=== PATIENT | female | born 1955 | race Caucasian/White ===

== ENCOUNTER → 2017-01-05 | Outpatient (CLI) | payer OTHER ==
--- NOTE | 2017-01-05 09:47 | RAD ---
DATE: 01/05/2017 EXAM: MAMMO MORE SCREENING BILATERAL Bilateral digital screening mammography to include digital breast tomosynthesis (3D mammography) HISTORY: Screening study. COMPARISON: 01/05/2016 This study was interpreted with the benefit of Computerized Aided Detection (CAD). The breast parenchyma is heterogeneously dense, which could reduce sensitivity of mammography. Breast parenchyma level C. FINDINGS: Digital MLO and CC mammograms of both breasts were obtained. Additionally digital breast tomosynthesis (3D mammography) images of both breasts in the MLO and CC projections were performed. Comparison study is dated 01/05/2016. The breast parenchyma is heterogeneously dense which can obscure a lesion on mammography (breast density code C). No spiculated mass is seen. No malignant appearing calcification or area of architectural distortion is noted. Benign-appearing calcifications are seen within both breasts. Digital breast tomosynthesis images demonstrate no spiculated mass or malignant appearing calcification. Since the previous examination there has been no significant interval change. IMPRESSION: BI-RADS Category 1, negative. There is no mammographic evidence of malignancy. Routine yearly screening mammography is recommended for follow-up. BI-RADS CATEGORY: 1 NEGATIVE RECOMMENDED FOLLOW-UP: 12M 12 MONTH FOLLOW-UP PQRS compliance statement: Patient information was entered into a reminder system with a target due date 01/05/2018 for the next mammogram. Mammography is a sensitive method for finding small breast cancers, but it does not detect them all and is not a substitute for careful clinical examination. A negative mammogram does not negate a clinically suspicious finding and should not result in delay in biopsying a clinically suspicious abnormality. "Our facility is accredited by the [employer] Mammography [employer]."
== END | disposition home or self-care (01) ==
LOC: MAMMO 08:06
PROVIDERS: ATTEND Family Medicine
DX: Z12.31 Encounter for screening mammogram for malignant neoplasm of breast (principal)
CPT/HCPCS: 77063; G0202; 77067

== ENCOUNTER 2017-02-02 19:31 | Emergency (ER) | payer OTHER ==
[~2017-02-02] VITALS: Ht 165.1 cm; Wt 54.5 kg
--- NOTE | 2017-02-02 19:51 | PHYS DOC ---
Adult General Chief Complaint Chief Complaint: PAIN ON URINATION HPI HPI Patient is a 61 year old F who presents with dysuria for the past couple weeks. Patient states the pain is gotten worse with urination. Patient that she could shake it however since the pain got worse she said the come in to be evaluated for UTI. Patient has history of UTIs states this feels like her previous UTIs. Patient denies any fevers. Patient denies any nausea/vomiting/diarrhea. Patient denies any chest pain or shortness of breath. Patient has no other complaints. Review of Systems Review of Systems GEN: Denies fevers, chills, sweats HEENT: Denies blurred vision, sore throat CV: Denies chest pain RESP: Denies shortness of air, cough GI: Denies n/v/d : Dysuria NEURO: Denies confusion, dizziness MSK: Denies weakness, joint pain/swelling Allergies Allergies Allergies Coded Allergies Type Severity Reaction Last Updated Verified No Known Drug Allergies 11/05/14 No Physical Exam Physical Exam GEN.: No apparent distress. Alert and oriented. HEENT: Head is normocephalic, atraumatic NECK: Supple. LUNGS: CTAB. HEART: RRR, S1, S2 present. Peripheral pulses intact ABDOMEN: Soft, nontender. Positive bowel sounds. EXTREMITIES: Without any cyanosis. NEUROLOGIC: Normal speech, normal tone PSYCHIATRIC: Normal affect, normal mood. SKIN: No ulcerations Current Patient Data Vital Signs Laboratory Tests Test 02/02/17 19:40 02/02/17 20:01 Urine Collection Type Unknown Urine Color Yellow Urine Clarity Clear Urine pH 6.0 Urine Specific [place] 1.010 Urine Protein Neg Urine Glucose (UA) Neg mg/dL Urine Ketones (Stick) Neg mg/dL Urine Blood Neg Urine Nitrite Neg Urine Bilirubin Neg Urine Urobilinogen Dipstick 0.2 mg/dL Urine Leukocyte Esterase Neg Urine RBC 0 /HPF Urine WBC 0 /HPF Urine Squamous Epithelial Cells Occ /LPF Urine Bacteria 0 /HPF White Blood Count 5.6 x10^3/uL Red Blood Count 4.39 x10^6/uL Hemoglobin 13.5 g/dL Hematocrit 38.5 % Mean Corpuscular Volume 88 fL Mean Corpuscular Hemoglobin 31 pg Mean Corpuscular Hemoglobin Concent 35 g/dL Red Cell Distribution Width 13.2 % Platelet Count 208 x10^3/uL Neutrophils (%) (Auto) 56 % Lymphocytes (%) (Auto) 31 % Monocytes (%) (Auto) 10 % Eosinophils (%) (Auto) 3 % Basophils (%) (Auto) 1 % Neutrophils # (Auto) 3.1 x10^3uL Lymphocytes # (Auto) 1.7 x10^3/uL Monocytes # (Auto) 0.5 x10^3/uL Eosinophils # (Auto) 0.2 x10^3/uL Basophils # (Auto) 0.0 x10^3/uL Sodium Level 141 mmol/L Potassium Level 3.3 mmol/L Chloride Level 103 mmol/L Carbon Dioxide Level 28 mmol/L Anion Gap 10 Blood Urea Nitrogen 12 mg/dL Creatinine 0.7 mg/dL Estimated GFR (Cockcroft-Gault) 85.1 BUN/Creatinine Ratio 17 Glucose Level 93 mg/dL Calcium Level 9.0 mg/dL Total Bilirubin 0.4 mg/dL Aspartate Amino Transf (AST/SGOT) 16 U/L Alanine Aminotransferase (ALT/SGPT) 22 U/L Alkaline Phosphatase 65 U/L Total Protein 7.8 g/dL Albumin 4.2 g/dL Albumin/Globulin Ratio 1.2 Lipase 238 U/L Current Medications Medications (Trade) Dose Ordered Sig/Alon Route PRN Reason Start Time Stop Time Status Last Admin Dose Admin Iohexol (Omnipaque 300 Mg/ml) 75 ml 1X ONCE IV 02/02/17 20:00 02/02/17 20:01 DC 02/02/17 20:12 EKG EKG [] Radiology/Procedures Radiology/Procedures CT scan abdomen and pelvis NAD[] Course & Med Decision Making Course & Med Decision Making Pertinent Labs and Imaging studies reviewed. (See chart for details) ED course: Patient was seen and examined in the emergency room and UA was ordered 1953: Bedside urine dip was performed which showed no signs of a UTI therefore discussed getting blood work and a CT scan abdomen pelvis with the patient who is in agreement. 2052: Updated patient on lab results and CT results. Since the patient still having burning with urination we'll go ahead and treat for a suspected UTI and recommended short-term follow-up with her PCP. MDM: After reviewing the chart, CC/HPI/PMH, physical exam, [lab results], [ radiological results], I do not believe the patient has a intra-abdominal emergency warranting further workup and/or admission at this time. Even though the UA was unremarkable patient's symptoms of a UTI warrant prophylactic treatment and short-term follow-up with her PCP. Patient is stable for discharge. Additional verbal discharge instructions were provided to the patient and that if symptoms get worse or any new symptoms arise that are worrisome to the patient she is to return to the emergency room immediately [] Dragon Disclaimer Dragon Disclaimer This chart was dictated in whole or in part using Voice Recognition software in a busy, high-work load, and often noisy Emergency Department environment. It may contain unintended and wholly unrecognized errors or omissions. Departure Departure: Impression: Primary Impression: Dysuria Condition: IMPROVED Referrals: OSCAR KENNEY MD (PCP) Patient Instructions: Dysuria-Brief Additional Instructions: Please follow-up with your family physician in the next one to 2 days and return if symptoms increase Scripts Sulfamethoxazole/Trimethoprim (BACTRIM DS TABLET) 1 Each Tablet 1 TAB PO BID for 5 Days, #10 TAB Prov: BRIE JACOBS DO 02/02/17 BRIE JACOBS DO Feb 02, 2017 19:51
[2017-02-02] MEDS ORDERED: IOHEXOL 300 MG/ML 75 ML VIAL. IV ONE (20:00)
[2017-02-02 20:24] LABS: BASO % 1 % (0-3); EOS # 0.2 x10^3/uL (0.0-0.7); EOS % 3 % (0-3); HEMATOCRIT 38.5 % (36.0-47.0); HEMOGLOBIN 13.5 g/dL (12.0-15.5); LYMPH # 1.7 x10^3/uL (1.0-4.8); LYMPH % 31 % (24-48); MEAN CORPUSCULAR HEMOGLOBIN 31 pg (25-35); MEAN CORPUSCULAR HGB CONC 35 g/dL (31-37); MEAN CORPUSCULAR VOLUME 88 fL (79-100); MONO # 0.5 x10^3/uL (0.0-1.1); MONO % 10 % (0-9); NEUT # 3.1 x10^3uL (1.8-7.7); NEUT % 56 % (31-73); PLATELET COUNT 208 x10^3/uL (140-400); RED BLOOD COUNT 4.39 x10^6/uL (3.50-5.40); RED CELL DISTRIBUTION WIDTH 13.2 % (11.5-14.5); WHITE BLOOD COUNT 5.6 x10^3/uL (4.0-11.0)
[2017-02-02 20:33] LABS: ALBUMIN 4.2 g/dL (3.4-5.0); ALBUMIN/GLOBULIN RATIO 1.2 (1.0-1.7); CREATININE 0.7 mg/dL (0.6-1.0); GFR 85.1; POTASSIUM 3.3 mmol/L (3.5-5.1); TOTAL BILIRUBIN 0.4 mg/dL (0.2-1.0); TOTAL PROTEIN 7.8 g/dL (6.4-8.2)
--- NOTE | 2017-02-02 20:39 | RAD ---
PQRS Compliance Statement: One or more of the following individualized dose reduction techniques were utilized for this examination: 1. Automated exposure control 2. Adjustment of the mA and/or kV according to patient size 3. Use of iterative reconstruction technique CT abdomen/pelvis with contrast February 02, 2017 INDICATION: Abdominal pain with painful urination. History of UTI. COMPARISON: CT abdomen/pelvis November 05, 2014 TECHNIQUE: Multiple axial CT images of the abdomen and pelvis were obtained after the intravenous administration of 75 cc Omnipaque 300. Coronal and sagittal reformats are provided. FINDINGS: Lung bases are clear. Heart size is within normal limits. There is a 3 mm hypodensity in the right hepatic lobe (series 2, image 23) statistically favor to represent a simple cyst. No suspicious hepatic masses are identified. Spleen, bilateral adrenal glands, and pancreas are normal in appearance. Gallbladder is present without adjacent inflammatory changes. Abdominal aorta is normal in course and caliber. No pathologically enlarged lymph nodes are identified in the abdomen or pelvis. There is no free fluid or free intraperitoneal air. Kidneys enhance symmetrically. No suspicious renal masses. No hydronephrosis. No calculi are identified in the ureters or urinary bladder. Oral contrast was not administered. There are no dilated loops of small or large bowel. Normal-appearing appendix is visualized. No pericolonic inflammatory changes are identified. No suspicious osseous lesions are identified. No significant adnexal lesions are identified. IMPRESSION: No acute abnormality is identified in the abdomen or pelvis. Electronically signed by: Jannet Nicholson MD (02/02/2017 8:35 PM) [facility]
[2017-02-02 20:41] LABS: BACTERIA,URINE 0 /HPF (0-FEW); BILIRUBIN,URINE NEG (NEG); CLARITY,URINE CLEAR; COLOR,URINE YELLOW; GLUCOSE,URINE NEG (NEG); NITRITE,URINE NEG (NEG); RBC,URINE 0 /HPF (0-2); SQUAMOUS EPITHELIAL CELL,UR OCC /LPF; UROBILINOGEN,URINE 0.2 mg/dL (0.2 mg/dL); WBC,URINE 0 /HPF (0-4)
[2017-02-02] MEDS ORDERED: SULF1TAB24 PO (20:57)
[2017-02-02 21:18] VITALS: BP 115/75
== END 2017-02-02 21:09 | disposition home or self-care (01) ==
LOC: ER 19:31
DX: R30.0 Dysuria (principal)
CPT/HCPCS: 36415; 74177; 80053; 81001; 83690; 85025; 99285; Q9967

== ENCOUNTER 2018-09-21 16:39 | Emergency (ER) | payer OTHER ==
[~2018-09-21 16:39] MED LIST: SULF1TAB24 PO
[2018-09-21 16:52] VITALS: BP 148/75
--- NOTE | 2018-09-21 17:12 | PHYS DOC ---
Past History Past Medical History: No Pertinent History (MERCEDES MARTIN MD) Past Surgical History: Hysterectomy, Tonsillectomy (MERCEDES MARTIN MD) Alcohol Use: None Drug Use: None (MERCEDES MARTIN MD) Adult General Chief Complaint Chief Complaint: ABDOMINAL PAIN HPI HPI Patient is a 63 year old female presenting with abdominal pain. She states the pain began a few days ago and is locater infraumbilically bilaterally. She reports some radiation downward into her pelvis and legs. She also states that she has had some burning and urgency. She denies blood in her urine or stool, vomiting, diarrhea, constipation, fever, chills, or headache. Pt. is reporting occasional back pain. (MERCEDES MARTIN MD) Review of Systems Review of Systems Constitutional: Denies fever or chills [] Eyes: Denies change in visual acuity, redness, or eye pain [] HENT: Denies nasal congestion or sore throat [] Respiratory: Denies cough or shortness of breath [] Cardiovascular: No additional information not addressed in HPI [] GI: Denies abdominal pain, nausea, vomiting, bloody stools or diarrhea [] : Reports urgency and burning [] Musculoskeletal: Reports back pain [] Integument: Denies rash or skin lesions [] Neurologic: Denies headache, focal weakness or sensory changes [] Endocrine: Denies polyuria or polydipsia [] All other systems were reviewed and found to be within normal limits, except as documented in this note. (MERCEDES MARTIN MD) Allergies Allergies Allergies Coded Allergies Type Severity Reaction Last Updated Verified No Known Drug Allergies 11/05/14 No (MERCEDES MARTIN MD) Physical Exam Physical Exam Constitutional: Well developed, well nourished, no acute distress, non-toxic appearance. [] HENT: Normocephalic, atraumatic, bilateral external ears normal, oropharynx moist, no oral exudates, nose normal. [] Eyes: PERRLA, EOMI, conjunctiva normal, no discharge. [] Neck: Normal range of motion, no tenderness, supple, no stridor. [] Cardiovascular:Heart rate regular rhythm, no murmur [] Lungs & Thorax: Bilateral breath sounds clear to auscultation [] Abdomen: Tenderness to palpation in RLQ and LLQ [] Skin: Warm, dry, no erythema, no rash. [] Back: No tenderness, no CVA tenderness. [] Extremities: No tenderness, no cyanosis, no clubbing, ROM intact, no edema. [] Neurologic: Alert and oriented X 3, normal motor function, normal sensory function, no focal deficits noted. [] Psychologic: Affect normal, judgement normal, mood normal. [] (MERCEDES MARTIN MD) Current Patient Data Vital Signs Vital Signs Date Time Temp Pulse Resp B/P (MAP) Pulse Ox O2 Delivery O2 Flow Rate FiO2 09/21/18 16:52 97.7 80 18 100 Room Air (MERCEDES MARTIN MD) EKG EKG [] (MERCEDES MARTIN MD) Radiology/Procedures Radiology/Procedures [] (MERCEDES MARTIN MD) Impressions: PROCEDURE: CT ABD PELV W/ IV CONTRST ONLY CT scan of the abdomen and pelvis with contrast 09/21/2018 CLINICAL HISTORY: Lower abdominal pain. TECHNIQUE: After the intravenous administration 75 cc of Omnipaque 300 only, contiguous, 5 mm axial sections were obtained through the abdomen and pelvis. One or more of the following individualized dose reduction techniques were utilized for this study: 1. Automated exposure control. 2. Adjustment of the mA and/or kV according to patient size. 3. Use of iterative reconstruction technique. FINDINGS: Comparison study is dated 02/02/2017. Images through the lung bases are within normal limits. The liver, spleen, pancreas, adrenal glands and kidneys are within normal limits. The abdominal aorta tapers normally. Mild atherosclerotic calcification of the abdominal aorta and its branches is seen. The gallbladder is slightly contracted. No free fluid or free air is seen within the abdomen. Air and stool is seen throughout the colon. The appendix is well-visualized and is within normal limits. Images through the pelvis demonstrate the urinary bladder to be contracted. Surgical clips are seen within the right pelvis. The patient appears to be post hysterectomy. No adnexal mass is seen. No free fluid is noted. Minimal S-shaped curvature of the thoracolumbar spine is seen. Degenerative changes are seen involving the mid and lower lumbar spine. IMPRESSION: No acute abnormality is seen. Electronically signed by: Samson Patton MD (09/21/2018 7:50 PM) [facility] (LAUREL KIRKLAND Jr. DO) Course & Med Decision Making Course & Med Decision Making Pertinent Labs and Imaging studies reviewed. (See chart for details) 63-year-old female presenting with lower abdominal discomfort to have some kind of burning pain may be some urgency however urinalysis is essentially negative so workup has been initiated with labs and a CT scan care will be signed over to Dr. Kirkland pending results (MERCEDES MARTIN MD) Dragon Disclaimer Dragon Disclaimer This electronic medical record was generated, in whole or in part, using a voice recognition dictation system. (MERCEDES MARTIN MD) Departure Departure: Impression: Primary Impression: Lower abdominal pain Additional Impression: Dysuria Disposition: HOME, SELF-CARE Condition: STABLE Referrals: OSCAR KENNEY MD (PCP) Patient Instructions: Abdominal Pain, Dysuria Scripts Phenazopyridine Hcl (PYRIDIUM) 100 Mg Tablet 100 MG PO TID for dysuria, #9 TAB Prov: LAUREL KIRKLAND Jr. DO 09/21/18 Sulfamethoxazole/Trimethoprim (BACTRIM DS TABLET) 1 Each Tablet 1 TAB PO BID for dysuria, #6 TAB Prov: LAUREL KIRKLAND Jr. DO 09/21/18 Problem Qualifiers MERCEDES MARTIN MD September 21, 2018 17:12 LAUREL KIRKLAND Jr. DO September 21, 2018 20:15
[2018-09-21 17:39] LABS: CLARITY,URINE CLEAR
[2018-09-21 17:40] LABS: BACTERIA,URINE 0 /HPF (0-FEW); BILIRUBIN,URINE NEG (NEG); COLOR,URINE YELLOW; GLUCOSE,URINE NEG (NEG); NITRITE,URINE NEG (NEG); RBC,URINE 0 /HPF (0-2); SQUAMOUS EPITHELIAL CELL,UR OCC /LPF; UROBILINOGEN,URINE 0.2 mg/dL (0.2 mg/dL); WBC,URINE 0 /HPF (0-4)
[2018-09-21 18:41] LABS: BASO % 1 % (0-3); EOS # 0.1 x10^3/uL (0.0-0.7); EOS % 2 % (0-3); HEMATOCRIT 41.4 % (36.0-47.0); HEMOGLOBIN 14.1 g/dL (12.0-15.5); LYMPH # 1.4 x10^3/uL (1.0-4.8); LYMPH % 29 % (24-48); MEAN CORPUSCULAR HEMOGLOBIN 30 pg (25-35); MEAN CORPUSCULAR HGB CONC 34 g/dL (31-37); MEAN CORPUSCULAR VOLUME 89 fL (79-100); MONO # 0.5 x10^3/uL (0.0-1.1); MONO % 10 % (0-9); NEUT # 2.8 x10^3uL (1.8-7.7); NEUT % 57 % (31-73); PLATELET COUNT 221 x10^3/uL (140-400); RED BLOOD COUNT 4.63 x10^6/uL (3.50-5.40); RED CELL DISTRIBUTION WIDTH 12.9 % (11.5-14.5); WHITE BLOOD COUNT 4.9 x10^3/uL (4.0-11.0)
[2018-09-21 18:50] LABS: ALBUMIN 4.3 g/dL (3.4-5.0); ALBUMIN/GLOBULIN RATIO 1.2 (1.0-1.7); CALCIUM 9.1 mg/dL (8.5-10.1); CREATININE 0.7 mg/dL (0.6-1.0); GFR 84.5; POTASSIUM 3.8 mmol/L (3.5-5.1); TOTAL BILIRUBIN 0.3 mg/dL (0.2-1.0); TOTAL PROTEIN 7.8 g/dL (6.4-8.2)
[2018-09-21] MEDS ORDERED: IOHEXOL 300 MG/ML 75 ML VIAL. IV ONE (19:00)
--- NOTE | 2018-09-21 19:53 | RAD ---
CT scan of the abdomen and pelvis with contrast 09/21/2018 CLINICAL HISTORY: Lower abdominal pain. TECHNIQUE: After the intravenous administration 75 cc of Omnipaque 300 only, contiguous, 5 mm axial sections were obtained through the abdomen and pelvis. One or more of the following individualized dose reduction techniques were utilized for this study: 1. Automated exposure control. 2. Adjustment of the mA and/or kV according to patient size. 3. Use of iterative reconstruction technique. FINDINGS: Comparison study is dated 02/02/2017. Images through the lung bases are within normal limits. The liver, spleen, pancreas, adrenal glands and kidneys are within normal limits. The abdominal aorta tapers normally. Mild atherosclerotic calcification of the abdominal aorta and its branches is seen. The gallbladder is slightly contracted. No free fluid or free air is seen within the abdomen. Air and stool is seen throughout the colon. The appendix is well-visualized and is within normal limits. Images through the pelvis demonstrate the urinary bladder to be contracted. Surgical clips are seen within the right pelvis. The patient appears to be post hysterectomy. No adnexal mass is seen. No free fluid is noted. Minimal S-shaped curvature of the thoracolumbar spine is seen. Degenerative changes are seen involving the mid and lower lumbar spine. IMPRESSION: No acute abnormality is seen. Electronically signed by: Samson Patton MD (09/21/2018 7:50 PM) [facility]
[2018-09-21] MEDS ORDERED: SULF1TAB24 PO (20:20)
[2018-09-21] MEDS ORDERED: PHEN100T82 PO (20:20)
[2018-09-21] MEDS ORDERED: PHENAZOPYRIDINE 100 MG TABLET. ONE (20:24)
[2018-09-21] MEDS ORDERED: SMZ/TMP 800/160MG TABLET. PO ONE ×2 (20:24→20:30)
[2018-09-21] MEDS ORDERED: PHENAZOPYRIDINE 100 MG TABLET. PO ONE (20:30)
== END 2018-09-21 20:25 | disposition home or self-care (01) ==
LOC: ER 16:39
DX: R10.32 Left lower quadrant pain (principal); R30.0 Dysuria; R10.33 Periumbilical pain; R39.15 Urgency of urination; R10.31 Right lower quadrant pain; Z90.710 Acquired absence of both cervix and uterus
CPT/HCPCS: 36415; 74177; 80053; 81001; 83690; 85025; 99285; Q9967

== ENCOUNTER 2018-09-29 18:00 | Emergency (ER) | payer OTHER ==
[~2018-09-29] VITALS: Ht 165.1 cm; Wt 54.5 kg
[~2018-09-29 18:00] MED LIST changes: +PHEN100T82 PO
[2018-09-29 18:10] VITALS: BP 136/78
--- NOTE | 2018-09-29 18:33 | PHYS DOC ---
Past History Past Medical History: No Pertinent History Past Surgical History: Hysterectomy, Tonsillectomy Alcohol Use: None Drug Use: None Adult General Chief Complaint Chief Complaint: ABDOMINAL PAIN HPI HPI 63-year-old female presents with continued dysuria, urinary frequency, and lower abdominal discomfort. The patient was seen in this ED. She had a negative urinalysis, but was placed on Pyridium and Bactrim. She states that she began to feel better at the end of that prescription, but then the symptoms came back. Sometimes she feels like she needs to go but goes very little. She denies any change in vaginal discharge or discomfort. She denies fever or chills. She is not complaining of any other symptoms or complaints. Review of Systems Review of Systems Constitutional: Denies fever or chills [] Eyes: Denies change in visual acuity, redness, or eye pain [] HENT: Denies nasal congestion or sore throat [] Respiratory: Denies cough or shortness of breath [] Cardiovascular: No additional information not addressed in HPI [] GI: Mild lower abdominal pain. Denies nausea, vomiting, bloody stools or diarrhea [] : Dysuria, urgency, frequency. Denies hematuria [] Musculoskeletal: Denies back pain or joint pain [] Integument: Denies rash or skin lesions [] Neurologic: Denies headache, focal weakness or sensory changes [] Endocrine: Denies polyuria or polydipsia [] All other systems were reviewed and found to be within normal limits, except as documented in this note. Allergies Allergies Allergies Coded Allergies Type Severity Reaction Last Updated Verified No Known Drug Allergies 11/05/14 No Physical Exam Physical Exam Constitutional: Well developed, well nourished, no acute distress, non-toxic appearance. [] HENT: Normocephalic, atraumatic, bilateral external ears normal, oropharynx moist, no oral exudates, nose normal. [] Eyes: PERRLA, EOMI, conjunctiva normal, no discharge. [] Neck: Normal range of motion, no tenderness, supple, no stridor. [] Cardiovascular:Heart rate regular rhythm, no murmur [] Lungs & Thorax: Bilateral breath sounds clear to auscultation [] Abdomen: Bowel sounds normal, soft, no tenderness, no masses, no pulsatile masses. [] Skin: Warm, dry, no erythema, no rash. [] Back: No tenderness, no CVA tenderness. [] Extremities: No tenderness, no cyanosis, no clubbing, ROM intact, no edema. [] Neurologic: Alert and oriented X 3, normal motor function, normal sensory function, no focal deficits noted. [] Psychologic: Affect normal, judgement normal, mood normal. [] Current Patient Data Vital Signs Vital Signs Date Time Temp Pulse Resp B/P (MAP) Pulse Ox O2 Delivery O2 Flow Rate FiO2 09/29/18 18:10 97.8 75 20 98 Room Air EKG EKG [] Radiology/Procedures Radiology/Procedures [] Course & Med Decision Making Course & Med Decision Making Pertinent Labs and Imaging studies reviewed. (See chart for details) [] Dragon Disclaimer Dragon Disclaimer This electronic medical record was generated, in whole or in part, using a voice recognition dictation system. Departure Departure: Impression: Primary Impression: Dysuria Disposition: HOME, SELF-CARE Condition: STABLE Referrals: WALT KIRK DO (PCP) Patient Instructions: Dysuria-Brief Scripts Phenazopyridine Hcl (PYRIDIUM) 100 Mg Tablet 100-200 MG PO TID PRN for PAIN, #20 TAB Prov: RITCHIE ELENA DO 09/29/18 RITCHIE ELENA DO September 29, 2018 18:33
[2018-09-29 18:45] LABS: BACTERIA,URINE 0 /HPF (0-FEW); BILIRUBIN,URINE NEG (NEG); CLARITY,URINE CLEAR; COLOR,URINE YELLOW; GLUCOSE,URINE NEG (NEG); NITRITE,URINE NEG (NEG); RBC,URINE 0 /HPF (0-2); SQUAMOUS EPITHELIAL CELL,UR OCC /LPF; UROBILINOGEN,URINE 0.2 mg/dL (0.2 mg/dL); WBC,URINE OCC /HPF (0-4)
[2018-09-29] MEDS ORDERED: PHEN100T82 PO (19:16)
== END 2018-09-29 19:18 | disposition home or self-care (01) ==
LOC: ER 18:00
DX: R30.0 Dysuria (principal); R35.0 Frequency of micturition; R10.30 Lower abdominal pain, unspecified; R39.15 Urgency of urination
CPT/HCPCS: 81001; 99283